=== PATIENT | male | born 1980 | race Caucasian/White ===

== ENCOUNTER 2022-09-26 04:42 | Emergency (ER) | payer OTHER ==
[~2022-09-26] VITALS: Ht 182.9 cm; Wt 97.5 kg
[2022-09-26 04:50] VITALS: BP 131/90; PULSE 76; RESP 16; TEMP 98.4; O2SAT 100
--- NOTE | 2022-09-26 04:50 | NUR ---
to bed ambulatory
[2022-09-26 05:15] VITALS: TEMP 98.4
--- NOTE | 2022-09-26 05:18 | NUR ---
ERMD by bedside evaluating patient at this time
[2022-09-26] MEDS ORDERED: KETOROLAC 60 MG/2 ML VIAL IM ONE (05:25)
[2022-09-26] MEDS ORDERED: ONDANSETRON 4 MG ODT PO ONE (05:25)
[2022-09-26] MEDS ORDERED: ONDA8TAB87 PO (05:41)
[2022-09-26] MEDS ORDERED: IBUP-2213 PO (05:41)
[2022-09-26] MEDS ORDERED: HYDR-5191 PO (05:41)
[2022-09-26 06:35] VITALS: BP 112/61; PULSE 74; RESP 16; O2SAT 97
--- NOTE | 2022-09-26 06:35 | NUR ---
Patient discharged with v/s stable. Written and verbal after care instructions given and explained. Patient alert, oriented and verbalized understanding of instructions. Ambulatory with steady gait. All questions addressed prior to discharge. ID band removed. Patient advised to follow up with PMD. Rx of Hydrocodone/Acetaminophen, Ibuprofen, Ondansetron given. Patient educated on indication of medication including possible reaction and side effects. Opportunity to ask questions provided and answered.
== END 2022-09-26 06:35 | disposition home or self-care (01) ==
LOC: MED 04:42
DX: R10.11 Right upper quadrant pain (principal); R11.2 Nausea with vomiting, unspecified
CPT/HCPCS: 81002; 96372; 99283; J1885; Q0162

== ENCOUNTER 2022-12-26 21:49 | Emergency (ER) | payer OTHER ==
[~2022-12-26] VITALS: Ht 182.9 cm; Wt 99.8 kg
[~2022-12-26 21:49] MED LIST: HYDR-5191 PO; IBUP-2213 PO; ONDA8TAB87 PO
[2022-12-26 21:50] VITALS: BP 122/73; PULSE 90; RESP 17; TEMP 98.1; O2SAT 97
[2022-12-26] MEDS ORDERED: NACL 0.9% 1,000 ML IV ONE (22:15)
[2022-12-26] MEDS ORDERED: ONDANSETRON 4 MG/2 ML VIAL IVP ONE (22:15)
[2022-12-26 22:38] LABS: BASOPHILS # (AUTO) 0.1 K/uL (0.00-0.22); EOSINOPHILS # (AUTO) 0.4 K/uL (0-0.4); EOSINOPHILS % (AUTO) 3.6 % (0.0-4.0); HEMATOCRIT 41.7 % (36-52); LYMPHOCYTES # (AUTO) 3.9 K/uL (2.0-11.5); LYMPHOCYTES % (AUTO) 34.1 % (20.5-51.1); MEAN CORPUSCULAR HEMOGLOBIN 30 pg (27-31); MEAN CORPUSCULAR HGB CONC 34 g/dL (33-37); MEAN CORPUSCULAR VOLUME 88.1 fL (80-94); MONOCYTES # (AUTO) 1.2 K/uL (0.8-1.0); MONOCYTES % (AUTO) 10.2 % (1.7-9.3); NEUTROPHILS # (AUTO) 5.8 K/uL (1.8-7.7); NEUTROPHILS % (AUTO) 51.1 % (42.2-75.2); PLATELET COUNT (AUTO) 244 K/uL (140-450); RED BLOOD CELL COUNT(AUTO) 4.74 MIL/uL (4.20-6.10); RED CELL DISTRIBUTION WIDTH 13.6 % (11.6-13.7); WHITE BLOOD COUNT (AUTO) 11.3 K/uL (4.8-10.8)
[2022-12-26 22:57] LABS: INR 0.97 (0.8-1.2); PARTIAL THROMBOPLASTIN TIME 21.5 secs (22-35.6); PROTHROMBIN TIME 10.2 secs (10.8-13.4)
[2022-12-26 23:33] LABS: ANION GAP 15.4 (8-16); CALCIUM 9.3 mg/dL (8.5-10.1); CHLORIDE 102 mmol/L (98-107); CREATININE 1.2 mg/dL (0.6-1.3); GFR ARICAN-AMERICAN 86 mL/min (>90); GFR NON ARICAN-AMERICAN 71 mL/min (>90); GLUCOSE 195 mg/dL (74-106); POTASSIUM 3.4 mmol/L (3.5-5.1); SODIUM SERUM 139 mmol/L (136-145); TOTAL BILIRUBIN 0.3 mg/dL (0.0-1.0); UREA NITROGEN, BLOOD 9 mg/dL (7-18)
[2022-12-26 23:34] LABS: ALANINE AMINOTRANSFERASE 106 U/L (12-78); ALBUMIN 4.2 g/dL (3.4-5.0); ALCOHOL, BLOOD 6 mg/dL (<10); ALKALINE PHOSPHATASE 93 U/L (50-136); ASPARTATE AMINOTRANSFERASE 40 U/L (15-37)
[2022-12-27 00:13] LABS: AMPHETAMINE, URINE NEGATIVE ng/ml (NEG <=1000); BARBITURATE, URINE NEGATIVE ng/ml (NEG <=200); BENZODIAZEPINE, URINE NEGATIVE ng/mL (NEG <=200); CANNABINOID, URINE POSITIVE ng/mL (NEG <=50); COCAINE, URINE NEGATIVE ng/mL (NEG <=300); OPIATE, URINE NEGATIVE ng/mL (NEG <=2000); PHENCYCLIDINE SCREEN,URINE NEGATIVE ng/mL (NEG <=25)
[2022-12-27 00:30] VITALS: BP 130/69; PULSE 97; RESP 17; TEMP 98.1; O2SAT 96
== END 2022-12-27 00:30 | disposition home or self-care (01) ==
LOC: MED 21:49
DX: R53.1 Weakness (principal); R11.2 Nausea with vomiting, unspecified; R20.0 Anesthesia of skin; F17.210 Nicotine dependence, cigarettes, uncomplicated; Z79.899 Other long term (current) drug therapy; Z91.018 Allergy to other foods
CPT/HCPCS: 36415; 70450; 71045; 80053; 80305; 84484; 85025; 85610; 85730; 86886; 86900; 86901; 96361; 96374; 99285; G0482; J2405; J7030